=== PATIENT | male | born 1965 | race Caucasian/White ===

== ENCOUNTER 2019-04-29 09:17 | Outpatient (CLI) | payer MEDICAID, SELFPAY ==
--- NOTE | 2019-04-29 09:32 | XR_ITS ---
WS: [id number] Cervical spine, 3 views, 04/29/2019 Clinical Data: CERVICAL SPINAL FUSION, S/P Comparison: Cervical spine x-ray, 04/01/2019. Findings: An anterior cervical disc fusion of C4-C7 remains intact. Interbody fusions at C4-C5 and C5 -C6 have not changed. There is no prevertebral soft tissue swelling. The soft tissues of neck in the lung apices are unremarkable. The odontoid is normal. XR/XR cervical spine 2V* [id number] Impression: No change in anterior cervical disc fusion C4-C6.
== END 2019-04-29 09:18 | disposition home or self-care (01) ==
PROVIDERS: Family Provider Internal Medicine; PCP Family Medicine; Referring Provider Family Medicine; Visit Provider Licensed Practical Nurse
DX: Z98.1 Arthrodesis status (principal)
CPT/HCPCS: 72040

== ENCOUNTER 2019-05-13 12:58 | Outpatient (CLI) | payer MEDICAID, SELFPAY ==
--- NOTE | 2019-05-13 13:15 | CT_ITS ---
WS: [id number] CT CERVICAL SPINE HISTORY: S/P CERVICAL SPINAL FUSION TECHNIQUE: Contiguous 2.5 mm axial imaging performed through the entire cervical spine. Sagittal and coronal reformats also performed. All CT scans at [facility] use at least one of these do se optimization techniques: automated exposure control; mA and/or kV adjustment per patient size (inc ludes targeted exams where dose is matched to clinical indication); or iterative reconstruction. DLP: 1915.26 mGycm COMPARISON: 10/03/2018 Status post anterior cervical fusion from C4 through C6. Interbody spacers at C4-5 and C5-6. Disc spa dave have been restored since the presurgical examination. Posterior cervical alignment is normal. No fractures. C2-C3: Shallow central disc protrusion. C3-C4: Small vertebral body osteophytes and shallow central protrusion. C4-C5: Mild osteophytic ridging with encroachment upon the ventral thecal sac. No significant stenosi s. C5-C6: Osteophytic ridging with mild encroachment upon the ventral thecal sac and mild RIGHT foramina l narrowing. C6-C7: Mild osteophytic ridging without significant stenosis. C7-T1: Normal. Paravertebral soft tissues are normal. CT/CT cervical spin wo con* [id number] IMPRESSION: 1. Status post anterior cervical fusion with interbody spacers from 4 through C6. Intact with no complications. 2. No significant stenosis.
== END 2019-05-13 12:59 | disposition home or self-care (01) ==
LOC: RADWPI 13:04
PROVIDERS: Family Provider Internal Medicine; PCP Family Medicine; Visit Provider Licensed Practical Nurse
DX: Z98.1 Arthrodesis status (principal)
CPT/HCPCS: 72125

== ENCOUNTER 2020-08-09 13:19 | Outpatient (CLI) | payer MEDICAID, SELFPAY ==
--- NOTE | 2020-08-09 13:37 | XR_ITS ---
WS: [id number] LUMBAR SPINE: 5 VIEWS TECHNIQUE: AP, lateral, and L5-S1 spot. Lateral views in neutral, flexion and extension. HISTORY: SPONDYLOLISTHESIS, LUMBAR REGION COMPARISON: 12/05/2018 Straightening and mild curvature of the lumbar spine. Mild increase in lumbar lordosis. Disc spaces a re mildly narrowed from L3-4 to L5-S1 with facet arthritis. With flexion and extension no definite in stability. Similar findings as compared to the prior examination. No acute fractures. Large bridging osteophyte on the RIGHT between L3 and L4. XR/XR lumbar spine min 4V [id number] IMPRESSION: 1. Moderate to severe spondylosis without significant progression. 2. No instability. 3. Facet joint arthritis and facet arthropathy most significant from L3-4 to L 5-S1.
--- NOTE | 2020-08-09 13:37 | XR_ITS ---
WS: [id number] LATERAL CERVICAL SPINE: 3 view. Lateral radiographs are performed in upright neutral, flexion and extension to the patient's toleranc e. HISTORY: SPONDYLOLISTHESIS, CERVICAL REGION COMPARISON: 04/29/2019 Less than 2 mm retrolisthesis of C3. Anterior cervical fusion extends from C4 to C6. Interbody spacer s at C4-5 and C5-6 remain unchanged in position. Probably not completely fused with the adjacent bone at this time. No instability in the cervical spine. XR/XR cervical spine fl/ex [id number] IMPRESSION: 1. No cervical instability. 2. Anterior cervical fusion with interbody spacers from C4 to C6.
== END 2020-08-09 13:20 | disposition home or self-care (01) ==
PROVIDERS: PCP Family Medicine; Visit Provider Specialist
DX: M43.12 Spondylolisthesis, cervical region (principal); M43.16 Spondylolisthesis, lumbar region; M47.816 Spondylosis without myelopathy or radiculopathy, lumbar region
CPT/HCPCS: 72040; 72110

== ENCOUNTER → 2020-09-13 07:59 | Outpatient (BNVA) | payer MEDICAID, SELFPAY | PROVIDERS: PCP Family Medicine; Visit Provider Specialist | DX: M47.816 Spondylosis without myelopathy or radiculopathy, lumbar region (principal); F17.210 Nicotine dependence, cigarettes, uncomplicated | CPT/HCPCS: 95886; 95908 ==

== ENCOUNTER 2020-12-21 08:30 | Outpatient (CLI) | payer MEDICAID, SELFPAY ==
--- NOTE | 2020-12-21 08:34 | IR_ITS ---
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 TECHNIQUE: The procedure, including risks, benefits, and complications, were discussed with the patie nt who agreed to proceed. A timeout was performed to confirm correct patient, procedure, and site. Using sterile technique, the patient was prepped and draped in the usual sterile fashion. After admin istration of local anesthesia using 1% preservative-free lidocaine and using fluoroscopic guidance, a 22-gauge spinal needle was advanced into the subarachnoid space at the L5-S1 level. Subsequently 13 cc of Omnipaque 240 was administered into the thecal sac. The needle was removed and hemostasis was a chieved. Subsequently the table was tilted down and contrast flowed freely into the cervical spine. S pot fluoroscopic images were obtained. FLUOROSCOPIC TIME: 0.9 minutes. Spot fluoroscopic images demonstrate ACDF C4-C6. Normal C1-C2 articulation. Normal cervical alignment on the neutral view. No instability on flexion-extension. 5 nonrib-bearing lumbar vertebral bodies. Trace retrolisthesis L3 on L4 and L4 on L5. Anterior hypert rophic changes lower thoracic and lumbar spine. Mild disc space narrowing L4-5 and L5-S1. No instabil ity on flexion-extension. Please see CT myelogram report for additional detail. IR/IR myelogram spine cervic/lumb IMPRESSION: Uncomplicated lumbar and cervical myelogram. Please see CT myelogram report for anatomic detail.
--- NOTE | 2020-12-21 08:36 | XR_ITS ---
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 FINDINGS: Mild degenerative arthritis left hip. No acute fractures. Normal femoral neck and proximal femoral sh aft. Normal visualized left pubic rami. XR/XR hip LT 2-3V wo/w pel* [id number] IMPRESSION: Mild degenerative arthritis left hip. No acute findings. Tonnis classification: grade 1: sclerosis of femoral head and acetabulum or sli ght joint space narrowing or slight lippig at joint margins
--- NOTE | 2020-12-21 08:36 | CT_ITS ---
WS: [id number] CT CERVICAL MYELOGRAM TECHNIQUE: CT of the cervical spine coronal and sagittal reformatted images post intrathecal administ ration of contrast. 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 DLP: 2267.[address] scans at [facility] use at least one of these dose optimization techniques: automat ed exposure control; mA and/or kV adjustment per patient size (includes targeted exams where dose is matched to clinical indication); or iterative reconstruction. FINDINGS: Straightening of the normal cervical lordosis. ACDF C4-C6 with interbody fusion grafts. No evidence o f hardware loosening. Mild bony bridging beyond the confines of the interbody fusion grafts progresse d since May 13, 2019. C2-C3: No significant disc bulging. Spinal canal and foramen are patent. C3-C4: Tiny shallow central protrusion. Spinal canal and foramen are patent. C4-C5: ACDF. Spinal canal and foramen are patent. Mild facet arthropathy. C5-C6: ACDF. Mild left and no significant right bony foraminal narrowing. Spinal canal is patent. C6-C7: Mild left and no significant right bony foraminal narrowing. Spinal canal is patent. C7-T1: Mild left and no significant right bony foraminal narrowing. Spinal canal is patent. Visualized posterior fossa structures: Normal. Mastoid air cells are well aerated. Visualized posterior nasopharynx appears normal. CT/CT cervical spine w con [id number] IMPRESSION: 1. Straightening of the normal cervical lordosis with ACDF C4-C6. 2. Hardware appears well seated. Interbody fusion grafts are stable with some evidence of bony bridging beyond the confines of the grafts progressed since 2019. 3. No high-grade central canal stenosis. 4. Shallow central protrusion C3-C4 with slight effacement of ventral thecal s ac. 5. Mild left bony foraminal narrowing left C6-C7 and left C7-T1.
--- NOTE | 2020-12-21 08:36 | CT_ITS ---
WS: [id number] CT LUMBAR SPINE TECHNIQUE: Contrast-enhanced CT of the lumbar spine with coronal and sagittal reformatted images. 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 DLP: 2046.[address] scans at [facility] use at least one of these dose optimization techniques: automat ed exposure control; mA and/or kV adjustment per patient size (includes targeted exams where dose is matched to clinical indication); or iterative reconstruction. FINDINGS: Mild lumbar curve. Anterior hypertrophic changes lower thoracic and lumbar spine. No acute compressio n fractures. No high-grade central canal stenosis. L1-L2: No significant disc bulging. Spinal canal and foramen are patent. Moderate facet arthropathy. L2-L3: Mild annular bulging. Slight effacement of the ventral thecal sac. Mild right and no significa nt left foraminal narrowing. Moderate facet arthropathy with ligamentum flavum hypertrophy. L3-L4: Mild disc bulging with osteophytic ridging. Mild central canal stenosis. Left foraminal protru jose with moderate left foraminal narrowing. Mild right foraminal narrowing. Moderate facet arthropat hy ligamentum flavum hypertrophy. L4-L5: Mild annular bulging with slight effacement of ventral thecal sac. Small bilateral foraminal p rotrusions with moderate left greater than right foraminal narrowing. Moderate facet arthropathy. L5-S1: Mild annular bulging with a tiny shallow right pericentral protrusion. Slight narrowing of the right subarticular recess with slight encroachment on the right S1 nerve root. Moderate facet arthro bianca. Mild right foraminal narrowing. Lobulated bilateral adrenal adenomas measuring 2.3 cm on the left and 1.5 cm and 1.[address]/CT lumbar spine w con [id number] IMPRESSION: 1. Mild lumbar curve. No acute compression. No high-grade central canal stenos is. 2. Mild central canal stenosis L3-4 due to disc bulging with osteophytic ridgi ng. Narrowing of the subarticular recess bilaterally. 3. Left foraminal protrusion L3-4 impinges the exiting left L3 nerve root tayo lar to the prior MRI. Correlation left L3 nerve root symptoms. 4. Moderate bilateral L4-5 foraminal narrowing due to disc osteophytic ridging worse in the left. 5. Small shallow right pericentral protrusion L5-S1 slightly encroaches on the right S1 nerve root. 6. Moderate facet arthropathy L3-L5.
[2020-12-21] MEDS: iohexol 240 mg/mL 50 mL Btl INTRATHECA (09:40)
== END 2020-12-21 08:31 | disposition home or self-care (01) ==
PROVIDERS: PCP Family Medicine; Visit Provider Specialist
DX: M99.51 Intervertebral disc stenosis of neural canal of cervical region (principal); M47.816 Spondylosis without myelopathy or radiculopathy, lumbar region; M51.27 Other intervertebral disc displacement, lumbosacral region; M25.78 Osteophyte, vertebrae; M51.26 Other intervertebral disc displacement, lumbar region; M16.12 Unilateral primary osteoarthritis, left hip; M50.21 Other cervical disc displacement, high cervical region; Z98.1 Arthrodesis status
CPT/HCPCS: 62305; 72040; 72120; 72126; 72132; 73502; Q9966